=== PATIENT | male | born 1985 | race Caucasian/White ===

== ENCOUNTER 2022-07-13 13:11 | Emergency (ER) | payer BC, SELFPAY ==
[2022-07-13 13:33] VITALS: BP 116/82; PULSE 65; RESP 18; TEMP 36.4; O2SAT 100
--- NOTE | 2022-07-27 15:31 | ED.WOUNDLAC ---
HPI - Wound/Laceration General Chief Complaint: Wound/Laceration Stated Complaint: thumb laceration Time Seen by Provider: 07/13/22 14:30 Source: patient Mode of arrival: ambulatory Limitations: no limitations History of Present Illness HPI narrative: 36-year-old male presents with skin avulsion to left thumb. Reports last night he was slicing 3 potatoes and caught himself. Has been saturating Band-Aids, cannot get wound to stop bleeding. Tetanus up-to-date. Range of motion intact. Patient arrived with bleeding controlled. All systems reviewed and negative except as noted above. Related Data Allergies Allergy/AdvReac Type Severity Reaction Status Date / Time ampicillin Allergy Mild Diarrhea Verified 07/13/22 13:47 Review of Systems Review of Systems: CONSTITUTIONAL: Denies fever, chills, or sweats. EYES: Denies visual changes, redness, or discharge. ENT: Denies rhinorrhea, congestion, sore throat, or otalgia. CARDIOVASCULAR: Denies chest pain, palpitations, or edema. RESPIRATORY: Denies cough or dyspnea. GASTROINTESTINAL: Denies abdominal pain, nausea, vomiting, or diarrhea. GENITOURINARY: Denies dysuria or hematuria. SKIN: Reports laceration left thumb. MUSCULOSKELETAL: Denies back pain, joint pain, or myalgia. NEUROLOGIC: Denies headache, numbness, or weakness. PSYCHIATRIC: Denies anxiety or depression. All other systems reviewed are negative, except as documented in HPI. PMFSH Social History Social History Alcohol intake: current Comments At time of signature, agree with nursing past medical, surgical, social and family history. There is no relevant family history pertinent to the presenting complaint. Exam Narrative: GENERAL: This is a well-nourished, well-developed patient, in no apparent distress. HEAD: normocephalic, atraumatic. EYES: PERRL. Sclera clear/white. Vision is grossly intact. EARS: External ears normal NOSE: External nose normal NECK: Neck supple, non-tender without lymphadenopathy, masses or thyromegaly. CARDIOVASCULAR: Regular rate and rhythm without murmurs, gallops, or rubs. RESPIRATORY: Clear to auscultation. Breath sounds equal bilaterally. No wheezes, rales, or rhonchi. SKIN: warm, Dry, with no suspicious lesions or rash, good texture and turgor. Small skin avulsion distal aspect left thumb, approximately 1 cm. Bleeding controlled at this time. NEURO: awake, alert, and oriented to person, place and time. There were no obvious focal neurologic abnormalities. EXTREMITIES: No joint tenderness, effusion, or edema noted. Course Course Level of Care: Express Care Visit Vital Signs Vital signs: Vital Signs Temperature 36.4 C 07/13/22 13:33 Pulse Rate 65 07/13/22 13:33 Respiratory Rate 18 07/13/22 13:33 Blood Pressure 116/82 07/13/22 13:33 Pulse Oximetry 100 07/13/22 13:33 Oxygen Delivery Room Air 07/13/22 13:33 Temperature 36.4 C 07/13/22 13:33 Pulse Rate 65 07/13/22 13:33 Respiratory Rate 18 07/13/22 13:33 Blood Pressure 116/82 07/13/22 13:33 Pulse Oximetry 100 07/13/22 13:33 Oxygen Delivery Room Air 07/13/22 13:33 reviewed Procedures Laceration Laceration 1: Date: 07/13/22 Time: 14:35 Site: hand Side (If applicable): left Size (cm): 1 Description: other ( Avulsion) Local Anesthetic: none ====== Skin Level ====== Skin layer closed with: other ( Surgicel, tube gauze) ====== Subcutaneous Layer ====== ====== Muscle Layer ====== ====== Tendon Layer ====== MDM - Wound/Laceration MDM Narrative Medical decision making narrative: Patient is aware of diagnosis, understands and agrees to treatment plan. Anticipatory guidance given. Patient agrees to follow-up as directed and is aware of reasons to seek care at the emergency department. Portions of this record may have been created with voice recognition software Discharge Plan Disch
== END 2022-07-13 15:03 | disposition home or self-care (01) ==
PROVIDERS: Emergency Provider Nurse Practitioner Family
DX: S61.002A Unspecified open wound of left thumb without damage to nail, initial encounter (principal); W45.8XXA Other foreign body or object entering through skin, initial encounter; Y93.G1 Activity, food preparation and clean up
CPT/HCPCS: 99212; G0463